=== PATIENT | male | born 1980 | race Caucasian/White ===

== ENCOUNTER 2016-10-23 15:04 | Outpatient (CLI) | payer BC ==
[~2016-10-23 15:04] MED LIST: ASPIR 8181 MG ORAL; AUGMENTIN 875-1 EAC1 ORAL; AZITHROMYCIN600 MG ORAL; CEPHALEXIN500 MG ORAL; CLINDAMYCIN HC300 MG ORAL; GABAPENTIN100 MG ORAL; IBUPROFEN600 MG ORAL; TIVICAY50 MG ORAL; TRAMADOL HCL50 MG ORAL; TRUVADA1 TAB ORAL
--- NOTE | 2016-10-26 08:01 | Diagnostic Imaging Report ---
Indication: SCREEN Technique: Grayscale and duplex images of the kidneys, retroperitoneum, and bladder were obtained. Comparison:11/12/2014 Findings: Right kidney measures 11.7 cm in length. Left kidney measures 11.1 cm in length. Both kidneys demonstrate normal echogenicity. No hydronephrosis. Echogenic foci in the left renal sinus could indicate calyceal calculi. Normal inferior vena cava. Bladder is normal. Prostate volume 27 mL Impression: Negative for hydronephrosis Possible left renal calyceal calculi Findings discussed by phone with Dr. Daily at the time of interpretation.
== END 2016-10-23 17:04 | disposition home or self-care (01) ==
LOC: ULS 15:04
DX: R31.9 Hematuria, unspecified (principal)
CPT/HCPCS: 76775

== ENCOUNTER 2016-11-10 10:03 | Outpatient (CLI) | payer BC ==
--- NOTE | 2016-11-10 11:06 | Diagnostic Imaging Report ---
Indication: Abdominal pain Technique: Continuous helical transaxial imaging of the abdomen and pelvis was obtained from the lung bases to the pubic symphysis. No intravenous contrast was administered. Coronal 2-D reformats were also obtained. Total Dose length Product (DLP): [address] Dose Index Volume (CTDIvol): 15.7, 0.15 mGy Comparison: none Findings: The lung bases appear clear. Current evaluation limited by the absence of intravenous contrast. There is no nephrolithiasis identified. There is no hydronephrosis. The appendix is normal as visualized. Gallbladder is unremarkable. Few calcifications noted within the aorta. No evidence of bowel obstruction. In pression: No acute findings. Atherosclerotic disease The CT scanner at [facility] is accredited by the [employer] and the scans are performed using dose optimization techniques as appropriate to a performed exam including Automatic Exposure control.
== END 2016-11-10 12:03 | disposition home or self-care (01) ==
LOC: CAT 10:03
DX: N20.0 Calculus of kidney (principal); I70.90 Unspecified atherosclerosis
CPT/HCPCS: 74176

== ENCOUNTER 2016-12-10 09:51 | Outpatient (CLI) | payer BC ==
--- NOTE | 2016-12-10 15:12 | Diagnostic Imaging Report ---
Indication: Headache. Seizure. Technique: The head was imaged in a 1.5 Padmini magnet. Sequences obtained include sagittal and axial T1 FLAIR, axial T2 fast spin echo with fat saturation, axial T2 FLAIR, diffusion and ADC map. Coronal volumetric T1 FSPGR and coronal T2 FLAIR also obtained through the area of the hippocampus. Gadolinium-enhanced axial and coronal T1 FLAIR obtained also. Comparison: None Findings: The size, contour, and configuration of the sulci, ventricles, and basal cisterns appear normal. Barros-white differentiation is normal. There is no restricted diffusion. There is no mass effect, midline shift, edema, or hemorrhage. There are no abnormal extra-axial or intra-axial fluid collections. The corpus callosum is unremarkable. The brainstem and cerebellum are unremarkable. The sella is unremarkable. Bone marrow signal within the visualized osseous structures appears age appropriate and unremarkable otherwise. No abnormal enhancement is identified. Impression: Negative MRI brain with and without contrast.
--- NOTE | 2016-12-10 16:06 | Diagnostic Imaging Report ---
Indication: Seizure. Technique: 3-D [id number] of the brain Comparison: None Findings: No significant stenosis, vascular malformation, or aneurysm is identified. Flow-related enhancement of the major intracranial arteries demonstrated including the anterior, middle, and posterior cerebral arteries. Impression: Negative MRA of the brain
== END 2016-12-10 11:51 | disposition home or self-care (01) ==
LOC: MRI 09:51
DX: G40.909 Epilepsy, unspecified, not intractable, without status epilepticus (principal); R41.3 Other amnesia; R51 Headache
CPT/HCPCS: 70544; 70553; A9585